=== PATIENT | female | born 1960 | race Caucasian/White ===

== ENCOUNTER 2017-07-29 16:12 | Emergency (ER) | payer OTHER ==
--- NOTE | 2017-07-29 17:33 | RAD ---
THREE VIEWS RIGHT ANKLE: 07/29/2017 HISTORY: Injury. Pain. COMPARISON: None. FINDINGS: The talar dome and ankle mortise are intact. There is no displaced fracture or evidence of dislocati on seen. There is soft tissue swelling anterior to the talar dome, suggesting an ankle joint effusion. IMPRESSION: No acute findings. POS: [facility]
== END 2017-07-29 16:45 | disposition home or self-care (01) ==
LOC: BURERS 16:12
DX: S93.401A Sprain of unspecified ligament of right ankle, initial encounter (principal); X50.1XXA Overexertion from prolonged static or awkward postures, initial encounter